=== PATIENT | male | born 1940 | race Caucasian/White ===

== ENCOUNTER 2019-06-02 10:18 | Day surgery (SDC) | payer OTHER ==
[2019-06-01 16:33] LABS: Absolute Lymphocytes (CBC) 1.4 K/uL (0.7-4.9); Basophils % 1.2 % (0-1.3); Hematocrit 43.4 % (39.6-49.0); Lymphocytes % 28.3 % (15.3-44.8); MPV 8.7 fL (7.6-11.3); RBC Red Blood Cell Count 4.34 M/uL (4.33-5.43)
[2019-06-01 16:43] LABS: Protime INR 1.17
[2019-06-01 16:49] LABS: Potassium 4.9 mmol/L (3.5-5.1)
[2019-06-01 17:05] LABS: Blood Morphology Comment NOT SEEN (NOT SEEN); Platelet Estimate ADEQ; Urine White Blood Cell Casts OK
--- OUTSIDE RECORDS SUMMARY | 2019-06-02 10:20 | XMS REPORT ---
:1940 [facility] Address [address] [place] [address] [address]. [address] [place] [address] Care Team Providers Name Role Phone Unavailable Unavailable Unavailable Problems This patient has no known problems. Allergies, Adverse Reactions, Alerts This patient has no known allergies or adverse reactions. Medications This patient has no known medications. Encounters Start End Encounter Admission Attending Care Care Encounter Date/Time Date/Time Type Type Clinicians Facility Department ID 2019-05-23 2019-05-23 Outpatient [facility] [id number] 07:49:00 07:49:00 2019-04-04 2019-04-04 Outpatient [facility] [id number] 10:04:00 10:04:00 2019-03-07 2019-03-07 Outpatient [facility] [id number] 10:23:00 10:23:00
[2019-06-02] MEDS ORDERED: NA CHLORIDE 0.9% 500 ML ONE (10:32)
[2019-06-02] MEDS ORDERED: HEPA 1000U/500MLS 1,000 UNIT/500 ML BAG IV ONE (11:05)
[2019-06-02] MEDS ORDERED: NA CHLORIDE 0.9% 0 ML ONE (11:06)
[2019-06-02] MEDS ORDERED: ATROPINE SULF 1 MG/10 ML SYR IV ONE (11:06)
[2019-06-02] MEDS ORDERED: FENTANYL CITR 100 MCG/2 ML ONE (11:17)
[2019-06-02] MEDS ORDERED: MIDAZOLAM HCL 2 MG/2 ML INJ ONE ×2 (11:17→11:22)
[2019-06-02 12:45] VITALS: TEMP 97.8
[2019-06-02 13:10] VITALS: O2SAT 100
[2019-06-02 14:14] VITALS: BP 144/68
--- NOTE | 2019-06-02 23:18 | OP ---
Date of Procedure: 06/02/2019 Surgeon: Barrett Strange MD Supervisor Ditching: Piedad Momin. Procedure Performed: Left heart catheterization, selective coronary arteriogram. Indication: Positive stress test and history of coronary artery disease. Description Of Procedure: The patient was brought to the quality assurance/r&d lab technician as an outpatient, prepped and drap ed in a routine sterile fashion. A 6-Andorran sheath was introduced in the left common femoral artery. Angio-Seal was used to close the case. Angiography there was normal. A JL4 6-Andorran catheter was introduced in the left main. Injections there showed a patent proximal to mid LAD stent. There was no circumflex noted on that view. A JR4 was introduced in the right main. This showed a normal RCA. 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 It was right dominant. Complications: There were no complications. Blood Loss: 5 mL. Postoperative Diagnoses: Mild coronary artery disease, patent left anterior descending stent. Plan is for medical therapy. Anesthesia: Total conscious sedation, 30 minutes. MAXIME/NAE Voice ID: [id number] Report ID: [id number]
== END 2019-06-02 14:15 | disposition home or self-care (01) ==
LOC: CCL 10:18
PROC: B201YZZ Plain Radiography of Multiple Coronary Arteries using Other Contrast (ICD-10-PCS; principal; 2019-06-02)
DX: I25.10 Atherosclerotic heart disease of native coronary artery without angina pectoris (principal); I48.3 Typical atrial flutter; I10 Essential (primary) hypertension; I48.91 Unspecified atrial fibrillation; E78.5 Hyperlipidemia, unspecified
CPT/HCPCS: 85025; 80048; 36415; 85610; 82947; 85730; 93454; C1893; C1760; J2250 ×2; J3010; J7040; J0583

== ENCOUNTER 2020-11-20 13:44 | Emergency (ER) | payer OTHER ==
--- OUTSIDE RECORDS SUMMARY | 2020-11-20 13:47 | XMS REPORT | Continuity of Care Document ---
:1940 Author Organization [facility] t Address [address] [place] [address] Care Team Providers Name Role Phone Sharpless Primary Care Physician RADIOLOGY Attending Clinician Unavailable ORGANTRANSPLANT Attending Clinician Unavailable AKUA Attending Clinician Unavailable MISHA Attending Clinician Unavailable KANDACE Attending Clinician Unavailable Problems Condition Condition Condition Status Onset Resolution Last Treating Co mments Source Name Details Category Date Date Treatment Clinician Date Adenocarci Adenocarci Disease Active [facility] n[facility] 2[facility]10 [facility] - rectosigmo rectosigmo 00:00: [place] dical id id 00 Center junction junction HTN HTN Disease Active [facility] (hypertens (hypertens 2-03 Miranda kes - ion) ion) 00:00: [address] STEMI (ST STEMI (ST Disease Active [facility] elevation elevation 2-03 [facility] - myocardial myocardial 00:00: Me dical infarction infarction 00 Ce nter ) ) Atrial Atrial Disease Active [facility] fibrillati fibrillati 2-03 Miranda kes - on on 00:00: [facility] 00 Center Liver Liver Problem Active [facility] lesion lesion [facility] [place] [facility] ans History of History of Problem Resolve Univers Alcoholic Alcoholic d [place] of History of Problem Resolve Univers atrial atrial d [place] of fibr[place] ans History of History of Problem Resolve Univers 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 [place] History of History of Problem Resolve Univers coronary coronary d ity of artery artery [place] disease disease Physici ans History of History of Problem Resolve Univers hyperlipid hyperlipid d it y of [place] Physici ans History of History of Problem Resolve Univers hypertensi hypertensi d it y of on on [place] [facility] ans History of History of Problem Resolve Univers Knee pain Knee pain d [place] [facility] ans History of History of Problem Resolve [facility] myocardial myocardial d [place] of infarction [place] History of History of Problem Resolve Univers Neural Neural d ity of hearing 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 Family History Family Member Diagnosis Comments Start Date Stop Date Source Father Family history of Univers [facility] of [place] kidney disease Physicians Sister Family history of [facility] cardiac disorder Physicia ns Social History Social Habit Start Date Stop Date Quantity Comments Source History of Chews Tobacco [facility] s tobacco use Medical Cent[facility] r Sex Assigned At [facility] Tobacco use and 2016-07-22 2016-07-22 Current user [facility] - exposure 00:00:00 00:00:00 [facility] Alcohol intake 2016-07-22 2016-07-22 [facility] non-drinker of Medical Ce nter alcohol (finding) Smoking Status Start Date Stop Date Source Ex-smoker (finding) [facility] Physicians Never smoker [facility] Medications Ordered Filled Start Stop Current Ordering Indication Dosage Frequency Signature Comments Components Source Medication Medication Date Date Medication? Clinician (SIG) Name Name aspirin 81 2017 Yes 81mg QD Take [address] [facility] EC 2-10 by mouth [facility] - tablet 22:07: daily. [address] Aspirin 81 Aspirin 81 Yes Uni vers MG TABS MG TABS ity of [place] [facility]ici ans Lactulose Lactulose Yes Unive rs 10 GM/15ML 10 GM/15ML ity of SYRP SYRP [place] [facility]ici ans Pepcid 20 Pepcid 20 Yes Unive rs MG Oral MG Oral ity of Tablet Tablet [place] [facility] ans Multi Multi Yes Univers Vitamin Vitamin ity of TABS TABS [place] Physici ans Vital Signs Vital Name Observation Time Observation Value Comments Source BP Systolic 2019-05-20 174 mm[Hg] Location: [facility] 11:40:00 Position: [place] Physician s Sitting BP Diastolic 2019-05-20 68 mm[Hg] Location: [facility] 11:40:00 Position: [place] Physician s Sitting Heart Rate 2019-05-20 68 /min [facility] 11:40:00 [place] Phys[place] s BP Systolic 2019-05-20 197 mm[Hg] Location: [facility] 10:34:00 Position: [place] Physician s Sitting BP Diastolic 2019-05-20 100 mm[Hg] Location: [facility] 10:34:00 Position: [place] Physician s Sitting Heart Rate 2019-05-20 85 /min [facility] 10:34:00 [place] Phys[place] s Height 2019-05-20 185.4 cm [facility] 10:34:00 [place] Phys[facility] s Weight 2019-05-20 216.25 [lb_av] [facility] 10:34:00 [place] Phys[facility] s Body Mass Index 2019-05-20 28.54 kg/m2 [place] o f Calculated 10:34:00 [place] Phys[facility] s O2 SAT 2019-05-20 98 % [facility] 10:34:00 [place] Physician s Procedures Procedure Date / Time Performing Clinician Source Performed VR [facility]Inter[facility]-09[facility]24 [facility] [L] Creatine, Serum 2019-08-02 00:00:00 [facility] Physicians MRI Abdomen with and 2019-07-25 00:00:00 [facility] ity of [place] without contrast [id number] Physician s [QLH] CMP W/EGFR 2019-06-27 00:00:00 [facility] Physicians [QLH] CBC (INCLUDES 2019-06-27 00:00:00 Universi ty [facility] DIFF/PLT) Physicians [QLH] PROTHROMBIN W/INR + 2019-06-27 [facility] s TIMES [QLH] CBC (INCLUDES 2019-05-20 00:00:00 Universi ty [facility] DIFF/PLT) Physicians [QLH] CMP W/EGFR 2019-05-20 00:00:00 [facility] Physicians [QLH] PROTHROMBIN W/INR + 2019-05-20 00:00:00 Un iversity [facility] PARTIAL THROMBOPLASTIN Physician s TIMES [QLH] AMMONIA (P) 2019-05-20 00:00:00 [facility] Physicians VR Vascular/Interventional 2019-05-20 00[facility]00[facility] VR Vascular/Interventional 2019-04-27 00:00[facility] History of Knee [facility] xas arthroscopy Physicians History of Low anterior [facility]i ty [facility] [place] resection Physicians History of Colostomy [facility] Physicians History of Cardiac [facility] catheterization Physicians History [facility]ary [facility] Plan of Care Planned Activity Planned Date Details Comments Source Diagnostic Test 2019-05-23 VR University o f Pending 00:00:00 Vascular/Intervention [place] [facility] al Radiology Consult [code = VR Vascular/Intervention al Radiology Consult] Future Scheduled VR After 27Apr2019 Universi ty of Test Vascular/Intervention [place] [facility] al Radiology Consult [code = VR Vascular/Intervention al Radiology Consult] Future Scheduled VR After 23May2019 Universi ty of Test Vascular/Intervention [place] Phys[facility] al Radiology Consult [code = VR Vascular/Intervention al Radiology Consult] Future Scheduled [QLH] CMP W/EGFR After 27Jun2019 Univ ersity of Test [code = [QLH] CMP [place] [facility] W/EGFR] Future Scheduled [QLH] CBC (INCLUDES After 27Jun2019 U niversity of Test DIFF/PLT) [code = [place] [facility] icians [QLH] CBC (INCLUDES DIFF/PLT)] Future Scheduled [QLH] PROTHROMBIN After 27Jun2019 Uni versity of Test W/INR + PARTIAL [place] Physic ians THROMBOPLASTIN TIMES [code = [QLH] PROTHROMBIN W/INR + PARTIAL THROMBOPLASTIN TIMES] Future Scheduled MRI Abdomen with and After 12Sep2019 University of Test without contrast [place] [facility] cians [id number] [code = 30796] Future Scheduled VR After 24Sep2019 Universi ty of Test Vascular/Intervention [place] [facility] al Radiology Consult [code = VR Vascular/Intervention al Radiology Consult] Future Scheduled VR After 24Sep2019 Universi ty of Test Vascular/Intervention [place] [facility] al Radiology Consult [code = VR Vascular/Intervention al Radiology Consult] Future Scheduled VR After 24Sep2019 Universi ty of Test Vascular/Intervention [place] [facility] al Radiology Consult [code = VR Vascular/Intervention al Radiology Consult] Future Scheduled VR After 24Sep2019 Universi ty of Test Vascular/Intervention [place] [facility] al Radiology Consult [code = VR Vascular/Intervention al Radiology Consult] Encounters Start End Encounter Admission Attending Care Care Encounter Source Date/Time Date/Time Type Type Clinicians Facility Department ID 2019-10-03 Outpatient [facility] [id number] MH 09:38:00 2019-06-20 2019-06-20 Outpatient [facility] [id number] [facility] 06:27:00 06:27:00 2019-05-23 2019-05-23 Outpatient [facility] [id number] [facility] 07:49:00 07:49:00 2019-05-20 2019-05-20 Appointjames RADIOLOGY, LUCINA Interventio [id number] Univers 10:00:00 10:00:00 t; PROVIDER garrett owens of RADIOLOGY, Radiology - T jimmy RIVERA [place] Physici [facility] ans [place] 2019-04-04 2019-04-04 Outpatient [facility] [id number] [facility] 10:04:00 10:04:00 2019-03-07 2019-03-07 [id number] Univers 11:30:00 11:30:00 t; Andradey o f ORGANTRANS [place] PLANT, OP Physic i ans 2019-03-07 2019-03-07 Outpatient [facility] [id number] MH 10:23:00 10:23:00 2019-02-28 2019-02-28 Appointmen ALIYA FATIMA [facility] UTP [id number] Univers 14:00:00 14:00:00 t; Laura FATIMA [place] Physici ans 2017-06-19 2017-06-19 AppointLUCINA Donohue UTP [id number] Univers 15:45:00 15:45:00 t; KAT noel of [place], [place] KAT Physici ans 2017-06-10 2017-06-10 AppointLUCINA Hernandez UTP [id number] Univers 07:30:00 07:30:00 t; JOHNATHON JERONIMO of [place] Physici ans 2017-06-10 2017-06-10 AppointLUCINA Donohue UTP [id number] Univers 07:00:00 07:00:00 t; KAT noel of [place], [place] KAT Galvan ans 2017-04-27 2017-04-27 Appointmen [facility] UTP [id number] Univers 11:00:00 11:00:00 t; KAT noel of [place], [place] KAT Galvan ans Results This patient has no known results.
[2020-11-20] MEDS ORDERED: HEPARIN 5000 UNIT/ML 1 ML VIAL ONE (15:29)
[2020-11-20] MEDS ORDERED: HEPARIN/D5W 25,000 UNIT/500 ML BAG IV ONE (15:30)
--- NOTE | 2020-11-20 15:46 | RAD REPORT ---
EXAM DESCRIPTION: USExtrem Venous W Compress Bil11/20/2020 3:36 pm CLINICAL HISTORY: Leg swelling COMPARISON: 2017 FINDINGS: The common femoral, superficial femoral, popliteal and posterior tibial veins bilaterally are compressible and demonstrate augmentation. Doppler demonstrates good flow. IMPRESSION: No evidence of deep venous thrombosis involving either lower extremity.
[2020-11-20 16:06] LABS: Absolute Lymphocytes (CBC) 0.8 K/uL (0.7-4.9); Basophils % 1.4 % (0-1.3); Hematocrit 34.4 % (39.6-49.0); Lymphocytes % 18.5 % (15.3-44.8); MPV 8.4 fL (7.6-11.3); RBC Red Blood Cell Count 3.35 M/uL (4.33-5.43)
[2020-11-20 16:16] LABS: Protime INR 1.43
[2020-11-20 16:19] LABS: Albumin 2.7 g/dL (3.4-5.0); Bilirubin Direct 0.4 mg/dL (0-0.2); Bilirubin Total 0.9 mg/dL (0.2-1.0); Magnesium 2.2 mg/dL (1.8-2.4); Potassium 4.9 mmol/L (3.5-5.1); Protein, Total 6.8 g/dL (6.4-8.2); Troponin (Emerg Dept Use Only) 0.02 ng/mL (0.0-0.045)
[2020-11-20 16:54] LABS: Blood Morphology Comment NOT SEEN (NOT SEEN); Platelet Estimate DECR; White Blood Cell Scan OK (OK)
--- NOTE | 2020-11-20 18:52 | ER ---
Nurse's Notes 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 Coronavirus screen: Client denies travel out of the [place] in the last 14 days. At this time, the client does not indicate any symptoms associated with coronavirus-19. Ebola Screen: No symptoms or risks identified at this time. Initial Sepsis Screen: Does the patient meet any 2 criteria? No. Patient's initial sepsis screen is negative. Does the patient have a suspected source of infection? No. Patient's initial sepsis screen is negative. Risk Assessment: Do you want to hurt yourself or someone else? Patient reports no desire to harm self or others. Onset of symptoms was November 20, 2020. 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 - Social history:: Smoking status: Patient/guardian denies using tobacco, the patient reports quitting approximately 50 years ago. Screenin:39 Abuse screen: Denies threats or abuse. Nutritional screening: No deficits noted. tw2 Tuberculosis screening: No symptoms or risk factors identified. Fall Risk Secondary diagnosis (15 points) impaired mobility. Assessment: 14:28 Reassessment: provider at bedside at this time. tw2 14:45 General: Appears in no apparent distress. uncomfortable, Behavior is calm, cooperative, jl7 appropriate for age. Pain: Denies pain. Neuro: Level of Consciousness is awake, alert, obeys commands, Oriented to person, place, time, situation. Cardiovascular: Patient's skin is warm and dry. Respiratory: Airway is patent Respiratory effort is even, unlabored, Respiratory pattern is regular, symmetrical, Denies shortness of breath. Derm: Skin is pink, warm \\T\\ dry. 15:58 Reassessment: pt states "i am deathly allergic to blood thinners and like to bled to tw2 the last time they gave me some at Dr. Gustafson but i dont remember the name of it", spouse at bedside attempting to call dr. العلي's office at this time. provider notified of pts refusal of Heparin at this time. 16:07 Reassessment: provider at bedside at this time. tw2 16:25 Reassessment: pt and spouse agreeable to Heparin IV drip at this time per orders. tw2 17:00 Reassessment: Patient appears in no apparent distress at this time. No changes from tw2 previously documented assessment. Patient and/or family updated on plan of care and expected duration. Pain level reassessed. Patient is alert, oriented x 3, equal unlabored respirations, skin warm/dry/pink. 17:15 Reassessment: provider at bedside at this time. tw2 17:54 Reassessment: pts spouse came to nurses station asking if we can lower the head of bed, tw2 upon entry into the room the pts states "were going to go home once that bag of fluids finishes, so how much longer will it be". provider notified as to the need for re-education regarding pts condition and plan. Vital Signs: 14:10 BP 124 / 59; Pulse 84; Resp 24; Temp 97.9(O); Pulse Ox 94% on R/A; Weight 85.73 kg; ph Height 6 ft. 1 in. (185.42 cm); 16:08 BP 124 / 60; Pulse 83; Resp 20; Pulse Ox 99% on R/A; tw2 17:00 BP 128 / 66; Pulse 81; Resp 20; Pulse Ox 99% on R/A; tw2 18:00 BP 155 / 75; Pulse 81; Resp 20; Pulse Ox 100% on R/A; tw2 14:10 Body Mass Index 24.94 (85.73 kg, 185.42 cm) ph ED Course: 13:46 Patient arrived in ED. ds1 13:47 Flip Harper MD is Private Physician. ds1 14:13 Triage completed. ph 14:14 Arm band placed on Patient placed in an exam room. ph 14:15 Bed in low position. Call light in reach. Side rails up X2. Adult w/ patient. Cardiac tw2 monitor on. Pulse ox on. NIBP on. Warm blanket given. 14:18 Bertin Treviño NP is PHCP. pm1 14:18 Norman Stevens MD is Attending Physician. pm1 14:19 Medardo Harper RN is Primary Nurse. jl7 15:36 Extrem Venous W Compression Rashaun US In Process Unspecified. EDMS 15:45 Inserted saline lock: 20 gauge in right forearm, using aseptic technique. ,using tw2 aseptic technique. JENS Batres Blood collected. Missed attempt(s): 22 gauge in left forearm. Bleeding controlled, band aid applied, catheter tip intact. Missed attempt(s): 20 gauge in left forearm. Bleeding controlled, band aid applied, catheter tip intact. 15:45 No provider procedures requiring assistance completed. Initial lab(s) drawn, by stephanie alex sent to lab. EKG done, by ED staff, reviewed by Bertin Treviño NP COVID swab sent to lab. IV discontinued, intact, bleeding controlled, No redness/swelling at site. Pressure dressing applied. 16:15 Inserted saline lock: 22 gauge in left forearm, using aseptic technique. jl7 Administered Medications: Discontinued: Heparin (DVT/PE Drip) 18 units/kg/hr - (HEParin 28607 units, D5W 500 ml) IV at calculated rate Per protocol; Max initial rate 1800 units/hr 14:57 Not Given (Physician Discretion): Lovenox (enoxaparin) 1 mg/kg Sub-Q once pm1 16:16 Not Given (Physician Discretion): Heparin (DVT/PE- Bolus per protocol) - HEParin 80 pm1 units/kg IVP once; Max 8,000 units 16:25 Drug: Heparin (DVT/PE Drip) 18 units/kg/hr - (HEParin 21565 units, D5W 500 ml) jl7 {Co-Signature: ll1 (Svetlana Keller RN).} Route: IV; Rate: calculated rate; Site: right forearm; 18:38 Drug: Lovenox (enoxaparin) 1 mg/kg Route: Sub-Q; Site: abdomen; jl7 Outcome: 15:45 AMA AMA form signed jl7 15:45 critical 19:10 Patient left the ED. jl7 Signatures: Dispatcher [employer] EDKS Jennifer Kimble ds1 Alecia Rosa RN RN ph Bertin Treviño, CIGAR MACHINE FEEDER CIGAR MACHINE FEEDER pm1 Ira Rasmussen RN RN tw2 Medardo Harper RN RN jl7 Svetlana Keller RN ll1 Corrections: (The following items were deleted from the chart) 14:14 14:10 Allergies: Xarelto; ph ph
--- NOTE | 2020-11-20 18:52 | EDPHYS ---
Physician Documentation [facility] Name: Joselo Almazan Age: 79 yrs Sex: Male : 1940 Arrival Date: 11/20/2020 Time: 13:46 Bed 8 Private MD: Flip Harper ED Physician Norman Stevens HPI: 11/20 14:52 This 79 yrs old Male presents to ER via Ambulatory with complaints of pm1 Abnormal CT Results. 14:52 Onset: The symptoms/episode began/occurred today. Associated signs and symptoms: The pm1 patient has no apparent associated signs or symptoms. The patient has not recently seen a physician, has an appointment scheduled, tomorrow with Dr. Lucas. Patient had a CT scan today for monitoring of his stage for colon cancer, lung cancer this AM. He was contacted by Dr. Lucas to report to the ER because of an abnormal CT finding. 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 - Social history:: Smoking status: Patient/guardian denies using tobacco, the patient reports quitting approximately 50 years ago. ROS: 14:52 Constitutional: Negative for fever, chills, and weight loss, Cardiovascular: Negative pm1 for chest pain, palpitations, and edema, Respiratory: Negative for increased shortness of breath - at his baseline, cough, wheezing, and pleuritic chest pain, Abdomen/GI: Negative for abdominal pain, nausea, vomiting, diarrhea, and constipation, Back: Negative for injury and pain, MS/Extremity: Negative for injury and deformity, Skin: Negative for injury, rash, and discoloration. 14:52 Neuro: Negative for headache, weakness, numbness, tingling, and seizure. 14:52 Eyes: Negative for injury, pain, redness, and discharge, ENT: Negative for injury, pain, and discharge, Neck: Negative for injury, pain, and swelling. Exam: 14:52 Constitutional: This is a well developed, well nourished patient who is awake, alert, pm1 and in no acute distress. Head/Face: Normocephalic, atraumatic. 14:52 Skin: Warm, dry with normal turgor. Normal color with no rashes, no lesions, and no evidence of cellulitis. MS/ Extremity: Pulses equal, no cyanosis. Neurovascular intact. Full, normal range of motion. 14:52 Eyes: Exam is negative for acute changes, Extraocular movements: no acute changes, Conjunctiva: normal, Sclera: no acute changes, icterus, is not appreciated. 14:52 ENT: Mouth: Lips: normal, Oral mucosa: normal, pink and intact, moist. 14:52 Cardiovascular: Rate: normal, Rhythm: regular, Pulses: no pulse deficits are appreciated, Edema: pedal edema, that is mild. 14:52 Respiratory: the patient does not display signs of respiratory distress, Respirations: normal, Breath sounds: are clear throughout. 14:52 Abdomen/GI: Inspection: abdomen appears normal, Palpation: abdomen is soft and non-tender. 14:52 Neuro: Exam negative for acute changes, Orientation: is normal, Mentation: is normal, Motor: is normal, moves all fours. Vital Signs: 14:10 BP 124 / 59; Pulse 84; Resp 24; Temp 97.9(O); Pulse Ox 94% on R/A; Weight 85.73 kg; ph Height 6 ft. 1 in. (185.42 cm); 16:08 BP 124 / 60; Pulse 83; Resp 20; Pulse Ox 99% on R/A; tw2 17:00 BP 128 / 66; Pulse 81; Resp 20; Pulse Ox 99% on R/A; tw2 18:00 BP 155 / 75; Pulse 81; Resp 20; Pulse Ox 100% on R/A; tw2 14:10 Body Mass Index 24.94 (85.73 kg, 185.42 cm) ph MDM: 14:24 Patient medically screened. pm1 16:09 ED course: Patient and were concerned with taking heparin therapy due to the pm1 bleeding risks. Will contact hem/onco for further advise. 16:17 Physician consultation: Sheridan Lucas was called at 15:59, was contacted at 15:59, pm1 regarding consult, patient's condition, Recommends heparin drip without bolus. Discussed with patient and his my discussion with Dr. Lucas and they agree with heparin therapy. 16:52 Counseling: I had a detailed discussion with the patient and/or guardian regarding: the pm1 historical points, exam findings, and any diagnostic results supporting the discharge/admit diagnosis, lab results, radiology results, the need to transfer to another facility, [facility] does not immediately have the required specialist. 16:59 Data reviewed: vital signs. Data interpreted: Pulse oximetry: on room air is 100 %. pm1 Interpretation: normal. 17:49 Refusal of service: The patient/guardian displays adequate decision making capability pm1 and despite a detailed discussion of alternatives, benefits, risks, and consequences refuses: Admission to the hospital for further work-up and treatment, Patient does not want to be transferred and wants to go home. 18:26 Physician consultation: MD Lucas regarding patient's decision to go against pm1 medical advice for transfer to another facility for evaluation and treatment by vascular surgery, Recommends Lovenox 1 mg/kg now and then 12 hours later Eliquis 5 mg PO Q12H and follow up in the office tomorrow since the patient is deciding to go against medical advice. 18:34 Refusal of service: The patient/guardian displays adequate decision making capability pm1 and despite a detailed discussion of alternatives, benefits, risks, and consequences refuses: Admission to the hospital for further work-up and treatment, Medardo RN present to witness patient's refusal for transfer for vascular surgery evaluation and treatment. Patient wants to go home. is present at bedside and agrees with his decision to go home AMA. Discussed plan of care for AMA with patient and family that was discussed with Dr. Lucas. Lovenox 1 mg/kg SQ now and then 12 hours after Lovenox administration patient takes Eliquis 5 mg PO and follow up in the office tomorrow with Dr. Lucas. 11/20 14:52 Order name: Basic Metabolic Panel; Complete Time: 16:42 pm1 11/20 14:52 Order name: CBC with Diff; Complete Time: 17:31 pm1 11/20 14:52 Order name: LFT's; Complete Time: 16:42 pm1 11/20 14:52 Order name: Magnesium; Complete Time: 16:42 pm1 06/08 14:52 Order name: NT PRO-BNP; Complete Time: 16:42 pm1 08 14:52 Order name: PT-INR; Complete Time: 16:42 pm1 08 14:52 Order name: Troponin (emerg Dept Use Only); Complete Time: 16:42 pm1 08 14:53 Order name: Extrem Venous W Compression Rashaun US; Complete Time: 15:50 pm1 08 14:57 Order name: Ptt, Activated; Complete Time: 16:42 pm1 08 16:53 Order name: CBC Smear Scan; Complete Time: 17:31 EDMS 08 17:08 Order name: SARS-COV-2 RT PCR; Complete Time: 17:31 EDMS 08 14:52 Order name: EKG; Complete Time: 14:52 pm1 08 14:52 Order name: Cardiac monitoring; Complete Time: 14:53 pm1 08 14:52 Order name: EKG - Nurse/Tech; Complete Time: 15:50 pm1 08 14:52 Order name: IV Saline Lock; Complete Time: 15:50 pm1 08 14:52 Order name: Labs collected and sent; Complete Time: 15:50 pm1 08 14:52 Order name: O2 Per Protocol; Complete Time: 14:53 pm1 08 14:52 Order name: O2 Sat Monitoring; Complete Time: 14:53 pm1 Administered Medications: Discontinued: Heparin (DVT/PE Drip) 18 units/kg/hr - (HEParin 06919 units, D5W 500 ml) IV at calculated rate Per protocol; Max initial rate 1800 units/hr 14:57 Not Given (Physician Discretion): Lovenox (enoxaparin) 1 mg/kg Sub-Q once pm1 16:16 Not Given (Physician Discretion): Heparin (DVT/PE- Bolus per protocol) - HEParin 80 pm1 units/kg IVP once; Max 8,000 units 16:25 Drug: Heparin (DVT/PE Drip) 18 units/kg/hr - (HEParin 41574 units, D5W 500 ml) jl7 {Co-Signature: ll1 (Svetlana Keller RN).} Route: IV; Rate: calculated rate; Site: right forearm; 18:38 Drug: Lovenox (enoxaparin) 1 mg/kg Route: Sub-Q; Site: abdomen; jl7 Disposition: 11/21 06:58 Co-signature as Attending Physician, Norman Stevens MD. rn Disposition: 11/20/20 18:51 Patient has left against medical advice. 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 - Patients states they are going to Home. - Condition is Undetermined. - Discharge Instructions: Venous Thromboembolism. - Prescriptions for Eliquis 5 mg Oral tablet - take 1 tablet by ORAL route every 12 hours; 10 tablet. Follow up: Private Physician; When: Tomorrow; Reason: Recheck today's complaints, Continuance of care, Re-evaluation by your physician. Follow up: Emergency Department; When: As needed; Reason: Worsening of condition. - Problem is new. - Symptoms have improved. Signatures: Dispatcher [employer] EDLA Norman Stevens MD MD rn Attema, Lee, LABEL MAKER-C LABEL MAKER-Cla1 Alecia Rosa RN RN ph Bertin Treviño, ELAINE FLOORWORKER LASTING pm1 Medardo Harper RN RN jl7 Svetlana Keller RN ll1 Corrections: (The following items were deleted from the chart) 11/20 14:14 14:10 Allergies: Xarelto; ph ph 16:08 15:52 CORONAVIRUS+MR.LAB.BRZ ordered. [facility] EDLA 19:10 18:51 11/20/2020 18:51 Patients has left against medical advice. Impression: Extensive jl7 tumor thrombus in IVC with significant extension into the right atrium; Thrombus within the right ventricle. Patient states they are going to Home. Condition is Undetermined. Follow up: Private Physician; When: Tomorrow; Reason: Recheck today's complaints, Continuance of care, Re-evaluation by your physician. Follow up: Emergency Department; When: As needed; Reason: Worsening of condition. Problem is new. Symptoms have improved. pm1
[2020-11-20] MEDS ORDERED: ENOXAPARIN 100 MG/ML SYR SQ ONE (18:54)
[2020-11-20 19:20] VITALS: TEMP 97.9
[2020-11-20 19:25] VITALS: BP 155/75; O2SAT 100
== END 2020-11-20 19:10 | disposition left against medical advice (07) ==
LOC: ER 13:44
DX: I82.220 Acute embolism and thrombosis of inferior vena cava (principal); I24.0 Acute coronary thrombosis not resulting in myocardial infarction; I10 Essential (primary) hypertension; Z95.818 Presence of other cardiac implants and grafts; Z85.038 Personal history of other malignant neoplasm of large intestine; Z20.822 Contact with and (suspected) exposure to COVID-19
CPT/HCPCS: 85025; 80048; 36415; 83735; 85610; 80076; 85730; 84484; 83880; 93970; U0003; J1644 ×3; J1650; 93005; 96372; 96374; 99285